=== PATIENT | female | born 1960 | race Hispanic/Latino ===

== ENCOUNTER 2019-11-09 22:33 | Emergency (ER) | payer OTHER, SELFPAY ==
--- NOTE | ~2019-11-09 | XR_ITS ---
EXAMINATION: XR chest 2V DATE: 11/10/2019 00:25 INDICATION: Shortness of breath. TECHNIQUE: Frontal and lateral views of the chest were obtained. COMPARISON: None. FINDINGS: The chest demonstrates clear lungs without pneumonia, pleural effusion, or pneumothorax. Th e heart size is normal. IMPRESSION: 1. No acute cardiopulmonary disease. Reviewed, dictated and finalized at location A. ORATE COUNSELOR
[2019-11-09 22:37] VITALS: BP 150/71; PULSE 62; RESP 31; TEMP 36.8; O2SAT 99
[2019-11-09 22:48] VITALS: PULSE 58
[2019-11-09 23:01] VITALS: BP 131/64; PULSE 56; RESP 25; O2SAT 97
--- NOTE | 2019-11-09 23:14 | ED.SOB ---
HPI - SOB/Dyspnea General Chief Complaint: Shortness of Breath/Dyspnea Stated Complaint: SOB Time Seen by Provider: 11/09/19 23:15 Source: patient and senior strategy manager (daughter translating from American to [place] Islander) Mode of arrival: ambulatory Limitations: no limitations History of Present Illness HPI Narrative: A 59 y/o female presents to the ED with c/o intermittent SOB for 2 days. Pt is not currently SOB in the ED bed. PAtient states for 2 days she has feeling of hard breathing. Whenever she has this sensations she states that she will also experience a warm sensation from my back to head. Pt had similar symptoms in the past when she had pneumonia. Pt has seen a building carpenter in the past but had not had a stress test done. She reports congestion, but denies heart palpitations, a cough, a fever, and smoking. Pt's daughter in the room translating from American to [place] Islander. Onset (ago): day(s) (2) Timing: intermittent Review of Systems Review of Systems: All systems reviewed & are unremarkable except as noted in HPI and below Constitutional: Constitutional: Denies fever(s) ENT: Denies dizziness Comments: Reports: congestion Cardiovascular: Cardiovascular: Denies chest pain and Denies rapid heart rate Comments: Denies: palpitations Respiratory: Respiratory: Denies cough and Reports dyspnea Gastrointestinal: Gastrointestinal: Denies diarrhea, Denies nausea and Denies vomiting PMFSH Past Medical History Medical History (Updated 11/10/19 @ 01:10 by Sonal Clayton MD) GERD (gastroesophageal reflux disease) HLD (hyperlipidemia) HTN (hypertension) Pneumonia Surgical History Surgical History (Updated 11/09/19 @ 23:24 by Tammei Savage) H/O hernia repair Social History Social History (Updated 11/09/19 @ 23:24 by Tammie Savage) Smoking status: Never smoker Gender identity (if verbalized by the patient): Female Comments No PCP on file. Exam Narrative: Exam Narrative: GENERAL: Well-appearing, well-nourished, and in no acute distress. HEAD: Normocephalic, atraumatic EYES: PERRLA and EOMI, conjunctiva clear without discharge THROAT:Mucous membranes moist, Oropharynx normal without erythema, exudate, peritonsillar swelling or fluctuance NECK: Supple, without lymphadenopathy or mass RESPIRATORY: No respiratory distress, Airway patent, Respirations non-labored, Clear to auscultation without rales, rhonchi or wheeze HEART: Regular rate and rhythm. No murmur heard. Normal peripheral pulses. ABDOMEN: Soft, nontender, nondistended, normal active bowel sounds. No masses. No rebound or guarding, No organomegaly. EXTREMITIES: No edema, normal strength with full range of motion. SKIN: Warm, dry, normal color without rash NEURO: Alert and oriented x3. CN 2-12 grossly intact. No focal deficits. PSYCH: Normal mood and affect. Course Vital Signs Vital signs: Vital Signs Temperature 98.2 F 11/09/19 22:37 Pulse Rate 62 11/09/19 22:37 Respiratory Rate 31 H 11/09/19 22:37 Blood Pressure 150/71 H 11/09/19 22:37 Pulse Oximetry 99 11/09/19 22:37 Temperature 98.1 F 11/10/19 01:37 Pulse Rate 57 L 11/10/19 01:30 Respiratory Rate 26 H 11/10/19 01:30 Blood Pressure 139/60 11/10/19 01:30 Pulse Oximetry 97 11/10/19 01:30 MDM - SOB/Dyspnea Lab Data Attestation: I reviewed the patient's lab results. Result diagrams: 11/09/19 23:27 11/09/19 23:27 Labs: Lab Results 11/09/19 11/09/19 11/09/19 Range/Units 23:27 23:27 23:27 WBC 4.1 L (4.5-10.0) K/mm3 RBC 3.95 L (4.2-5.4) M/mm3 Hgb 12.3 (12.0-15.0) g/dL Hct 35.4 L (37.0-47.0) % MCV 89.6 (80-100) fl MCH 31.1 (26-34) pg MCHC 34.7 (32-36) g/dl RDW 13.2 (11.5-14.5) % Plt Count 177 (150-375) k/mm3 MPV 11.4 H (7.4-10.4) fl Immature Gran % (Auto) 0.2 (0-0.5) % Neut % (Auto) 55.9 (45.5-73.1) % Lymph % (Auto) 29.2 (18.3-44.2) % [place] % (Auto) 11.8 H
--- NOTE | 2019-11-09 23:20 | ECG_ITS ---
Measurements Intervals [place] Rate: 58 P: 28 [place]: 164 QRS: 27 QRSD: 88 T: 11 QT: 430 QTc: 426 Interpretive Statements SINUS BRADYCARDIA EARLY PRECORDIAL R/S TRANSITION BORDERLINE ST-T WAVE ABNORMALITY- INFERIOR LEADS BORDERLINE ECG Electronically Signed On 11-10-2019 7:03:10 BIOINFORMATICS SOFTWARE ENGINEER by Joey Potts D.O.
[2019-11-09 23:47] LABS: Basophils Percent Auto 0.7 % (0.2-1.2); Eosinophils Absolute Auto 0.1 K/mm3 (0-0.3); Eosinophils Percent Auto 2.2 % (0-4.4); Hematocrit 35.4 % (37.0-47.0); Hemoglobin 12.3 g/dL (12.0-15.0); Immature Granulocyte Absolute 0.01 K/mm3 (0.00-0.031); Immature Granulocyte Percent A 0.2 % (0-0.5); Lymphocytes Absolute Auto 1.19 K/mm3 (0.9-3.2); Lymphocytes Percent Auto 29.2 % (18.3-44.2); Mean Corpuscular HGB Conc 34.7 g/dl (32-36); Mean Corpuscular Hemoglobin 31.1 pg (26-34); Mean Corpuscular Volume 89.6 fl (80-100); Mean Platelet Volume 11.4 fl (7.4-10.4); Monocytes Absolute Auto 0.5 K/mm3 (0.1-0.6); Monocytes Percent Auto 11.8 % (2.6-8.5); Neutrophils Absolute Auto 2.3 K/mm3 (1.3-6.7); Neutrophils Percent Auto 55.9 % (45.5-73.1); Platelet Count Result 177 k/mm3 (150-375); Red Blood Count 3.95 M/mm3 (4.2-5.4); Red Cell Distribution Width 13.2 % (11.5-14.5); White Blood Count 4.1 K/mm3 (4.5-10.0)
[2019-11-09 23:51] LABS: INR 0.9; Partial Thromboplastin Time 29.8 SECONDS (22.3-36.8); Prothrombin Time 12.2 Seconds (11.1-14.7)
[2019-11-09 23:54] LABS: D Dimer 0.39 ug/mL (<0.48)
[2019-11-10] VITALS: BP 147/78; PULSE 56; RESP 20; O2SAT 97
[2019-11-10 00:19] LABS: Troponin I < 0.012 ng/mL (0.000-0.034)
[2019-11-10 00:20] LABS: Alanine Aminotransferase 36 U/L (4-35); Albumin Level 3.9 g/dL (3.5-5.1); Alkaline Phosphatase 84 U/L (38-126); Aspartate Amino Transferase 53 U/L (14-36); Bilirubin,Total 0.3 mg/dL (0.2-1.3); Blood Urea Nitrogen 17 mg/dL (7-17); Calcium 8.9 mg/dL (8.4-10.2); Carbon Dioxide 22 mmol/L (22-30); Chloride 105 mmol/L (98-107); Estimated CRCL calculation 70 ml/min; Estimated Glomerular Filt Rate > 60; Glucose 96 mg/dL (65-105); Potassium 3.8 mmol/L (3.4-5.0); Sodium 138 mmol/L (137-145)
[2019-11-10 00:24] VITALS: BP 135/69; PULSE 56; RESP 25; O2SAT 96
[2019-11-10 01:01] VITALS: BP 134/70; PULSE 60; RESP 22; O2SAT 98
[2019-11-10 01:30] VITALS: BP 139/60; PULSE 57; RESP 26; O2SAT 97
[2019-11-10 01:37] VITALS: TEMP 36.7
== END 2019-11-10 01:55 | disposition home or self-care (01) ==
PROVIDERS: Emergency Provider General Practice
DX: R06.00 Dyspnea, unspecified (principal); K21.9 Gastro-esophageal reflux disease without esophagitis; E78.5 Hyperlipidemia, unspecified; I10 Essential (primary) hypertension
CPT/HCPCS: 36415; 71046; 80053; 84484; 85025; 85380; 85610; 85730; 93005; 99284

== ENCOUNTER 2021-04-14 17:39 | Emergency (ER) | payer OTHER, SELFPAY ==
[2021-04-14 18:07] VITALS: BP 154/66; PULSE 59; RESP 18; TEMP 36.5; O2SAT 100
--- NOTE | 2021-04-14 20:16 | ED.DENTAL ---
HPI - Dental/Oral General Chief complaint: Dental/Oral Stated complaint: Tooth Ache Time Seen by Provider: 04/14/21 19:30 Source: patient and RN notes reviewed Mode of arrival: ambulatory Limitations: no limitations History of Present Illness HPI Narrative: Patient is a 61-year-old female who presents to emergency department for evaluation of dental pain to the right upper lower teeth where she has history of gross dental decay this is been going on for 2 to 3 days she notes moderate aching pain she denies any fever chills nausea vomiting or other complaints and otherwise presents in no distress resting comfortably has not taken anything for symptoms at this time has had similar occurrence in the past does not have a dentist Review of Systems Review of Systems: All systems reviewed & are unremarkable except as noted in HPI and below PMFSH Past Medical History Medical History GERD (gastroesophageal reflux disease) HLD (hyperlipidemia) HTN (hypertension) Pneumonia Surgical History Surgical History H/O hernia repair Social History Social History Smoking status: Never smoker Gender identity (if verbalized by the patient): Female Exam Narrative: GENERAL: Well-appearing, well-nourished, and in no acute distress. HEAD: Normocephalic, atraumatic. EYES: PERRLA and EOMI. ENT: Nares clear, no rhinorrhea or epistaxis. Mucous membranes moist. Patient with dental decay and tenderness of the right upper posterior teeth no space-occupying lesions floor the mouth is soft no trismus or drooling NECK: Supple. No adenopathy or masses. CHEST: Clear to auscultation. No respiratory distress. No wheezes rales or rhonchi HEART: Regular rate and rhythm. No murmur heard. EXTREMITIES: Normal range of motion. No edema. SKIN: Warm, dry, no rash. NEURO: No focal deficits. Alert and oriented x3. Cranial nerves II through XII grossly intact PSYCH: Normal mood and affect. Course Course Emergency Course: Patient in the room no distress aware of case findings treatment plan and diagnosis agreeing to follow-up as instructed or to return if symptoms worsen or concerns Vital Signs Vital signs: Vital Signs Temperature 97.7 F 04/14/21 18:07 Pulse Rate 59 L 04/14/21 18:07 Respiratory Rate 18 04/14/21 18:07 Blood Pressure 154/66 H 04/14/21 18:07 Pulse Oximetry 100 04/14/21 18:07 Temperature 97.7 F 04/14/21 18:07 Pulse Rate 59 L 04/14/21 18:07 Respiratory Rate 18 04/14/21 18:07 Blood Pressure 154/66 H 04/14/21 18:07 Pulse Oximetry 100 04/14/21 18:07 MDM - Dental/Oral MDM Narrative Medical decision making narrative: Paitents pain and complaint coupled with physical findings are consistant with dentalgia. There are no focal signs of space occupying lesions that are compromising to the ariway. The floor of the mouth is soft with no signs of Ludwigs Angina. Patient is without trismus or drooling and able to swallow secreations. Patient is felt appropriate for discharge home with dental follow up. Discharge Plan Discharge Clinical Impression: Dental abscess Patient Disposition: Home, Self-Care Condition: Stable Instructions: Antibiotic Form, Dental Abscess (ED) Additional Instructions: Follow up with your primary care provider and dentistry within 1-2 days to set up for reevaluation. Go to ER for shortness of breath, difficulty breathing, chest pain, fever/chills, weakness, nauseau/vomitting, etc. or any other concerns. Stay well-hydrated Take any prescribed medications as directed. Follow patient education sheets If you do not have a drug allergy to tylenol or motrin and can tolerate it then take tylenol or motrin as needed for discomfort/pain. Prescriptions: New amoxicillin 500 mg capsule 500 mg PO Q8H 10 Days Qty: 30 RF: 0
== END 2021-04-14 20:31 | disposition home or self-care (01) ==
PROVIDERS: Emergency Provider Emergency Medicine
DX: K04.7 Periapical abscess without sinus (principal); K21.9 Gastro-esophageal reflux disease without esophagitis; I10 Essential (primary) hypertension; E78.5 Hyperlipidemia, unspecified; Z87.01 Personal history of pneumonia (recurrent)
CPT/HCPCS: 99283

== ENCOUNTER 2022-01-20 10:39 | Inpatient (IN) | payer OTHER, SELFPAY ==
--- NOTE | ~2022-01-20 | XR_ITS ---
EXAMINATION: XR tibia fibula LT 2V DATE: 01/20/2022 11:02 INDICATION: Laceration to the posterior distal left lower leg post trauma TECHNIQUE: Anteroposterior and lateral views of the left tibia and fibula were obtained. COMPARISON: None. FINDINGS: Soft tissue swelling with small lucencies in the subcutaneous tissues at the posterior aspect of the distal calf consistent with provided history of trauma with lacerations. No radiopaque foreign bodies identified. Bone alignment is normal. No fracture. Profiled joint spaces are normal. Moderate-sized plantar calcaneal spur. IMPRESSION: 1. No acute osseous abnormality or radiopaque foreign bodies. Reviewed, dictated and finalized at location A.
--- NOTE | ~2022-01-20 | XR_ITS ---
EXAMINATION: XR chest 1V portable DATE: 01/21/2022 14:07 INDICATION: Cough. TECHNIQUE: A single frontal view of the chest was obtained. COMPARISON: Chest 2 views 11/10/2019 FINDINGS: There is no pneumonia, pleural effusion, or pneumothorax. Cardiomegaly is noted. IMPRESSION: 1. Cardiomegaly. Reviewed, dictated and finalized at location B. IMPRESSION: 1. Cardiomegaly.
[2022-01-20 10:48] VITALS: BP 131/66; PULSE 71; RESP 18; TEMP 36.1; O2SAT 97
--- NOTE | 2022-01-20 12:24 | ED.WOUNDLAC ---
HPI - Wound/Laceration General Chief Complaint: Wound/Laceration Stated Complaint: fall/leg laceration Time Seen by Provider: 01/20/22 12:15 Source: patient Limitations: no limitations History of Present Illness HPI narrative: Patient is 62 years old female who does not speak Libyan came to the emergency room with her daughter who speaks Libyan complaining of laceration left ankle medially, hit a piece of metal in the ground while trying to mowing the grass.. No other injuries. Unknown tetanus. Related Data Allergies Allergy/AdvReac Type Severity Reaction Status Date / Time No Known Allergies Allergy Verified 01/20/22 11:22 Review of Systems Review of Systems: All systems reviewed & are unremarkable except as noted in HPI and below PMFSH Past Medical History Medical History GERD (gastroesophageal reflux disease) HLD (hyperlipidemia) HTN (hypertension) Pneumonia Surgical History Surgical History H/O hernia repair Social History Social History Smoking status: Never smoker Gender identity (if verbalized by the patient): Female Exam Narrative: General appearance: Well-developed, well-nourished. The daughter at the bedside Skin: Normal color, 5 cm subcutaneous laceration at medial side of left ankle, Head: Normocephalic, nontraumatic Chest and respiratory: Airway patent, no respiratory distress, no accessory muscle use Heart: Regular rate/rhythm Vascular: Normal peripheral pulses, normal capillary refill. Musculoskeletal: Normal range of motion, nontender back Neurologic: Alert and oriented ?3, Course Vital Signs Vital signs: Vital Signs Temperature 36.1 C L 01/20/22 10:48 Pulse Rate 71 01/20/22 10:48 Respiratory Rate 18 01/20/22 10:48 Blood Pressure 131/66 01/20/22 10:48 Pulse Oximetry 97 01/20/22 10:48 Temperature 36.1 C L 01/20/22 10:48 Pulse Rate 71 01/20/22 10:48 Respiratory Rate 18 01/20/22 10:48 Blood Pressure 131/66 01/20/22 10:48 Pulse Oximetry 97 01/20/22 10:48 MDM - Wound/Laceration Imaging Data Radiologist's impression: Impressions Tibia/Fibula X-Ray 01/20/22 11:03 IMPRESSION: 1. No acute osseous abnormality or radiopaque foreign bodies. Discharge Plan Discharge Clinical Impression: Laceration Patient Disposition: Still a Patient Condition: Stable Additional Instructions: Admit to hospitalist, consult Dr. Del Rosario Prescriptions: No Action amoxicillin 500 mg capsule 500 mg PO Q8H 10 Days Qty: 30 RF: 0 ibuprofen [IBU] 600 mg tablet 600 mg PO QID PRN (Reason: fever or pain) Qty: 7 RF: 0 hydrocodone-acetaminophen 5-325 mg tablet 1 tablet PO Q6H PRN (Reason: pain) Qty: 7 RF: 0 Follow-up/Referrals: Kelly,MARI Munson [Primary Care Provider] -
[2022-01-20] MEDS: TETANUS,DIPHTHERIA,AC PERTUSSIS ADULT (0.5 ML) BOOSTRIX IM (13:00)
[2022-01-20] MEDS: LIDO 1%/EPINEPHRINE 1:100,000 10 ML VIAL ×2 (14:08→14:43)
[2022-01-20] MEDS: MORPHINE SULFATE (*CRX) 4 MG/ML INJ IV PUSH ×2 (15:08→19:57)
[2022-01-20] MEDS: ONDANSETRON INJ 4 MG/2 ML VIAL IV PUSH (15:08)
[2022-01-20] MEDS: ceFAZolin 2 GM/D5W 50 ML 2 GM/50 ML BAG IVPB (16:09)
[2022-01-20 17:03] VITALS: O2SAT 98
[2022-01-20 17:05] VITALS: BP 95/62; O2SAT 98
--- NOTE | 2022-01-20 17:44 | ADMGEN ---
This patient, Lorrie Angulo, was admitted to 2 Medical Room 241-01. Patient/family oriented to hospital policies and general routines including ID bracelet, bed and alarms, visiting hours, pain management, procedures, bathroom and other care routines, personal items, smoking policy, room service/diet, and visiting hours. Information on how to activate the Rapid Response Team has been discussed. Patient/Family are encouraged to report perceived risks to care and to ask questions if they do not understand what they are told or what they should do.
[2022-01-20 20:00] VITALS: PULSE 71; RESP 18; O2SAT 98
--- NOTE | 2022-01-20 21:10 | PM.IMHP ---
H&P: HPI History of Present Illness Date/Time: Patient was placed observation status for expected length of stay less than 23 hours for management, will plan to re-evaluate tomorrow for improvement. 01/20/22 21:10 Chief Complaint: Left ankle laceration Narrative: Ms. Andrew is a 62-year-old female who presented emergency room after lacerating her left medial ankle. Patient does not speak Lithuanian very well but her daughter is at bedside to help with some translation. Per patient she was mowing the lawn and a piece of metal flew up and hit the medial side of her left ankle. Patient started walking towards her house and her daughter noticed that there was quite a bit of blood from this area and patient's daughter thought patient should come emergency room. Patient states that it did her toe walk but she was able to walk. Upon evaluation emergency room the emergency room physician noted that patient had a laceration to the left medial ankle and it appeared that her tendon had been cut. Patient denies any lightheadedness, dizziness, syncopal, or near syncopal episodes. Orthopedic surgery was consulted. Patient denies any past medical history and states she takes no medication at home. Review of Systems Review of Systems: It is difficult to obtain a full review of systems but a 12 point review of systems was completed patient all pertinent positive and negative per HPI the remainder are unremarkable. [facility] Past Medical History Medical History GERD (gastroesophageal reflux disease) HLD (hyperlipidemia) HTN (hypertension) Pneumonia Surgical History Surgical History H/O hernia repair Social History Social History Smoking status: Never smoker Alcohol intake: never Substance use: never Substance use type: does not use Gender identity (if verbalized by the patient): Female Spiritual care concerns: No Meds Home Medications and Allergies Home Medications Medication Instructions Recorded Confirmed Type atorvastatin [Lipitor] 80 mg PO DAILY 01/20/22 01/20/22 History Allergies Allergy/AdvReac Type Severity Reaction Status Date / Time No Known Allergies Allergy Verified 01/20/22 11:22 Vital Signs Vital Signs - 24 hr 01/20/22 10:48 01/20/22 17:03 01/20/22 17:05 Temperature 36.1 C L Pulse Rate 71 Respiratory Rate 18 Blood Pressure 131/66 95/62 L Pulse Oximetry 97 98 98 Exam Narrative: Constitutional: Patient is well-nourished in no acute distress. Patient is alert and oriented x3 HEENT: Moist mucous membranes. No scleral icterus. No lymphadenopathy. Neck: No carotid bruits noted no JVD noted Lungs: Lung sounds are clear to auscultation bilaterally. No accessory muscle use. No rhonchi, rales, or wheezes noted. Cardiovascular: Apical pulse is regular rate and rhythm. S1-S2 noted, no S3 or S4 noted. No gallops, murmurs, or rubs noted. Abdomen: Soft, round, and nontender. No palpable masses. Extremities: No edema. Nontender. Skin: dressing to left lower extremity is dry intact. Neurological: No focal neurological deficits. Cranial nerves II-XII grossly intact. Psychiatric: Cooperative, appropriate mood, and affect Assessment and Plan Assessment and plan (1) Open wound of left lower extremity with tendon involvement: Code(s): S81.802A - Unspecified open wound, left lower leg, initial encounter; S86.902A - Unspecified injury of unspecified muscle(s) and tendon(s) at lower leg level, left leg, initial encounter Status: Acute Assessment and Plan: at this point time orthopedic surgery has been consult and appreciate further recommendations. Patient will be kept NPO after midnight for possible surgery. Patient's RCRI score is 0 which puts her at a 3.9% 30 day risk of , mi, or cardiac arrest. Patient
[2022-01-20 22:00] VITALS: BP 101/49; PULSE 58; RESP 14; TEMP 36.7; O2SAT 93
[2022-01-21] VITALS (14 sets, daily range): BP systolic 97–125; BP diastolic 46–68; PULSE 54–63; RESP 11–18; TEMP 36.4–37.7; O2SAT 93–100; BMI 33.9
[2022-01-21] MEDS: ACETAMINOPHEN 325 MG TABLET 650 MG PO ×2 (00:34→06:02)
[2022-01-21 05:50] LABS: Basophils Percent Auto 0.6 % (0.2-1.2); Eosinophils Absolute Auto 0.3 K/mm3 (0-0.3); Eosinophils Percent Auto 5.7 % (0-4.4); Hematocrit 34.3 % (37.0-47.0); Hemoglobin 11.1 g/dL (12.0-15.0); Immature Granulocyte Absolute 0.01 K/mm3 (0.00-0.031); Immature Granulocyte Percent A 0.2 % (0-0.5); Lymphocytes Absolute Auto 0.95 K/mm3 (0.9-3.2); Lymphocytes Percent Auto 18.1 % (18.3-44.2); Mean Corpuscular HGB Conc 32.4 g/dl (32-36); Mean Corpuscular Hemoglobin 29.6 pg (26-34); Mean Corpuscular Volume 91.5 fl (80-100); Mean Platelet Volume 11.4 fl (7.4-10.4); Monocytes Absolute Auto 0.5 K/mm3 (0.1-0.6); Monocytes Percent Auto 9.9 % (2.6-8.5); Neutrophils Absolute Auto 3.4 K/mm3 (1.3-6.7); Neutrophils Percent Auto 65.5 % (45.5-73.1); Platelet Count Result 166 k/mm3 (150-375); Red Blood Count 3.75 M/mm3 (4.2-5.4); Red Cell Distribution Width 13.5 % (11.5-14.5); White Blood Count 5.3 K/mm3 (4.5-10.0)
[2022-01-21 06:06] LABS: Alanine Aminotransferase 23 U/L (6-35); Albumin Level 3.6 g/dL (3.5-5.1); Alkaline Phosphatase 72 U/L (38-126); Anion Gap 9 mmol/L (8-16); Aspartate Amino Transferase 31 U/L (14-36); Bilirubin,Total 0.6 mg/dL (0.2-1.3); Blood Urea Nitrogen 16 mg/dL (7-17); Calcium 8.4 mg/dL (8.4-10.2); Carbon Dioxide 29 mmol/L (22-30); Chloride 106 mmol/L (98-107); Estimated CRCL calculation 59 ml/min; Estimated Glomerular Filt Rate > 60; Glucose 87 mg/dL (65-110); Magnesium 2.1 mg/dL (1.6-2.3); Potassium 3.8 mmol/L (3.4-5.0); Sodium 144 mmol/L (137-145)
--- NOTE | 2022-01-21 07:40 | PM.CNOR ---
Assessment and Plan Assessment and plan (1) Open wound of left lower extremity with tendon involvement: Code(s): S81.802A - Unspecified open wound, left lower leg, initial encounter; S86.902A - Unspecified injury of unspecified muscle(s) and tendon(s) at lower leg level, left leg, initial encounter Status: Acute Assessment and Plan: Discussed nonoperative and operative treatment options with the patient And family. Risks and benefits of each as well as alternatives were reviewed. All of the patient's questions were answered. The risks of surgery reviewed including but not limited to: Neurovascular damage, wound complication, infection, blood clot, pulmonary embolus, stroke, myocardial infarction, and anesthetic risks up to and including . Continued pain and possible dysfunction were explained. Specific risks of the procedure including later recurrence of deformity. No guarantees were offered. If hardware used, discussed risk of failure/ breakage and possible need for removal. If complications occur, the patient understands the need for further treatment, possible further surgery. Patient verbalizes understanding and wishes to proceed. PLAN: debridement left lower leg wound with possible repair. (2) Laceration: Status: Acute History of Present Illness HPI Consult date: 01/21/22 Requesting physician: Awa Sweet MD Chief complaint: Left leg laceration w lacerated ligament/muscle Narrative: 62-year-old woman with left lower leg laceration from a piece of metal while mowing the lawn. irrigated and dressing placed by emergency room. Admitted for IV antibiotics and further evaluation and treatment. Patient seen and examined with the assistance of daughter who acted as pillowcase sewer. Complains of pain posterior left lower leg. Denies numbness or tingling. Denies any prior problems with the leg. Unable to comfortably bear weight after injury. Review of Systems Constitutional: Constitutional: Denies fever(s) Eyes: Eyes: Denies blurry vision ENT: Reports Normal hearing present Cardiovascular: Cardiovascular: Denies chest pain and Denies dyspnea Respiratory: Respiratory: Denies dyspnea and Denies wheezing Gastrointestinal: Gastrointestinal: Denies abdominal pain Genitourinary: Genitourinary: Denies urinary urgency Musculoskeletal: Musculoskeletal: Reports as per HPI and Denies numbness Integumentary/Breasts: Skin/Breast: Denies changing lesions and Denies sores Neurologic: Reports Normal hearing present, Denies behavioral changes, Denies confusion, Denies numbness and Denies convulsions Psychiatric: Psychiatric: Denies behavioral changes, Denies confusion and Denies hallucinations Endocrine: Endocrine: Denies heat intolerance Hematologic/Lymphatic: Hematologic/Lymphatic: Denies easy bleeding Allergic/Immunologic: Allergic/Immunologic: Denies wheezing PMFSH Past Medical History Medical History GERD (gastroesophageal reflux disease) HLD (hyperlipidemia) HTN (hypertension) Pneumonia Surgical History Surgical History H/O hernia repair Social History Social History Smoking status: Never smoker Alcohol intake: never Substance use: never Substance use type: does not use Gender identity (if verbalized by the patient): Female Spiritual care concerns: No Meds Home Medications and Allergies Home Medications Medication Instructions Recorded Confirmed Type atorvastatin [Lipitor] 80 mg PO DAILY 01/20/22 01/20/22 History Allergies Allergy/AdvReac Type Severity Reaction Status Date / Time No Known Allergies Allergy Verified 01/20/22 11:22 Vital Signs Vital Signs - 24 hr 01/20/22 10:48 01/20/22 17:03 01/20/22 17:05 Temperature 97.0 F L Pulse Rate 71 Respiratory Rate 18 Blood Pressure 131
[2022-01-21] MEDS: HYDROcodone/acetaminophen (*CRX) 5-325 MG TABLET 1 TAB PO (08:18)
[2022-01-21] MEDS: GENTAMICIN SULFATE INJ 320 MG in DEXTROSE 5% 100 ML 100 MG IVPB (09:38)
--- NOTE | 2022-01-21 13:51 | PM.IMPN ---
Progress Note: A&P Assessment and Plan (1) Open wound of left lower extremity with tendon involvement: Code(s): S81.802A - Unspecified open wound, left lower leg, initial encounter; S86.902A - Unspecified injury of unspecified muscle(s) and tendon(s) at lower leg level, left leg, initial encounter Status: Acute Assessment and Plan: -ortho consulted -plan for debridement of left lower leg wound with possible repair in OR today -continue IV abx -further management per ortho (2) Cough: Code(s): R05.9 - Cough, unspecified Status: Acute Assessment and Plan: -cough/congestion x 3 days -covid negative -CXR w/ cardiomegaly, no infiltrates -consider claritin/flonase for allergic rhinitis Subjective Date/time seen: 01/21/22 13:52 Interval history: 62 yo botswanan speaking female w/ hx of HTN, HLD, GERD, admitted for ankle laceration. Pt c/o 4-5 pain currently. No numbness or tingling. Also reports nasal congestion, rhinorrhea, cough x 3 days. She is not vaccinated for covid and has never been diagnosed with covid. Daughter at bedside acting as a manager entry. Review of Systems Review of Systems: All systems reviewed & are unremarkable except as noted in HPI and below Exam Narrative: General: No acute distress, non toxic appearing Eyes: PERRL, no scleral icterus HEENT: NCAT, external ears normal, MMM Respiratory: No respiratory distress, Lungs CTA bilaterally, no wheezing Cardiovascular: RRR, no murmur Abdominal: Soft, nontender, non distended, no rebound or guarding Musculoskeletal: Moves all 4 extremities, no edema Neurological: A/Ox3, speech clear, no facial asymmetry Skin: Warm, dry. Dressing to LLE c/d/i. Psychiatric: Normal affect, normal mood Objective Data Vital Signs Vital Signs: Vital Signs - 24 hr 01/20/22 17:03 01/20/22 17:05 01/20/22 20:00 Temperature Pulse Rate 71 Respiratory Rate 18 Blood Pressure 95/62 L Pulse Oximetry 98 98 98 01/20/22 22:00 01/21/22 06:53 01/21/22 08:53 Temperature 98.0 F 98.4 F Pulse Rate 58 L 55 L Respiratory Rate 14 16 Blood Pressure 101/49 L 97/46 L Pulse Oximetry 93 97 96 Intake/Output Intake/Output: Intake & Output 01/18/22 01/19/22 01/20/22 01/21/22 23:59 23:59 23:59 23:59 Intake Total 50 258 Output Total 500 Balance 50 -242 Meds/Results Medications: Active Medications Generic Name Dose Route Start Last Admin Trade Name Freq PRN Reason Stop Dose Admin Acetaminophen 650 mg 01/20/22 15:37 01/21/22 06:02 Acetaminophen 325 Mg Tablet PO 650 mg Q4H PRN Administration Mild Pain (1-3) or Fever Hydrocodone Bitart/Acetaminophen 1 tab 01/21/22 07:48 01/21/22 08:18 Hydrocodone/Acetaminophen (*Crx) 5-325 Mg Tablet PO 1 tab Q4H PRN Administration Pain Rated 4-6 Atorvastatin Calcium 80 mg 01/21/22 09:00 Atorvastatin 40 Mg Tablet PO DAILY FOREST Gentamicin Sulfate 320 mg/ 108 mls @ 99.31 mls/hr 01/22/22 09:00 Dextrose IVPB PRN PRN PHARMACY DOSING Morphine Sulfate 4 mg 01/20/22 15:37 01/20/22 19:57 Morphine Sulfate (*Crx) 4 Mg/Ml Inj IV PUSH 4 mg Q2H PRN Administration Pain Rated 7-10 Ondansetron HCl 4 mg 01/20/22 15:37 Ondansetron Inj 4 Mg/2 Ml Vial IV PUSH Q4H PRN Nausea Radiology Results: ITS Impressions Tibia/Fibula X-Ray 01/20/22 11:03 IMPRESSION: 1. No acute osseous abnormality or radiopaque foreign bodies. Labs Labs: Laboratory Results - last 24 hr 01/21/22 01/21/22 04:51 04:51 WBC 5.3 RBC 3.75 L Hgb 11.1 L Hct 34.3 L MCV 91.5 MCH 29.6 MCHC 32.4 RDW 13.5 Plt Count 166 MPV 11.4 H Immature Gran % (Auto) 0.2 Neut % (Auto) 65.5 Lymph % (Auto) 18.1 L [place] % (Auto) 9.9 H Eos % (Auto) 5.7 H Baso % (Auto) 0.6 Lymph # (Auto) 0.95 [place] # (Auto) 0.5 Eos # (Auto) 0.3 Baso # (Auto) 0.0 Abs Immat Gran (auto) 0.01 Absolute
[2022-01-21 14:54] LABS: EDCOVIDSCREEN Negative (Negative)
[2022-01-21] MEDS: LACTATED RINGERS 1,000 ML 30 ML IV CONT (15:28)
--- NOTE | 2022-01-21 15:33 | WPDANESEPPF ---
Anes - Initial Pre Proc Eval Procedure: Operation Date: 01/21/22 15:30 Proposed Procedures p Wash out and Repair Ankle Ligaments(Left) - Gallo Del Rosario MD Date/Time: 01/21/22 15:33 Surgeon: Dolores Voss PA-C Pre Op Diagnosis: Left leg laceration w lacerated ligament/muscle Patient Data Age: 62 Gender: F Height: 1.57 m Weight: 84.2 kg Last Vital Signs Temp 37.7 C H 01/21/22 15:27 Pulse 62 01/21/22 15:27 Resp 18 01/21/22 15:27 BP 108/46 L 01/21/22 15:27 Pulse Ox 98 01/21/22 15:27 Allergies Allergy/AdvReac Type Severity Reaction Status Date / Time No Known Allergies Allergy Verified 01/20/22 11:22 Home Medications Medication Instructions Recorded Confirmed Type atorvastatin [Lipitor] 80 mg PO DAILY 01/20/22 01/20/22 History Laboratory Tests 01/21/22 01/21/22 01/21/22 04:51 04:51 14:21 WBC 5.3 K/mm3 K/mm3 (4.5-10.0) RBC 3.75 M/mm3 L M/mm3 (4.2-5.4) Hgb 11.1 g/dL L g/dL (12.0-15.0) Hct 34.3 % L % (37.0-47.0) MCV 91.5 fl fl (80-100) MCH 29.6 pg pg (26-34) MCHC 32.4 g/dl g/dl (32-36) RDW 13.5 % % (11.5-14.5) Plt Count 166 k/mm3 k/mm3 (150-375) MPV 11.4 fl H fl (7.4-10.4) Immature Gran % (Auto) 0.2 % % (0-0.5) Neut % (Auto) 65.5 % % (45.5-73.1) Lymph % (Auto) 18.1 % L % (18.3-44.2) [place] % (Auto) 9.9 % H % (2.6-8.5) Eos % (Auto) 5.7 % H % (0-4.4) Baso % (Auto) 0.6 % % (0.2-1.2) Lymph # (Auto) 0.95 K/mm3 K/mm3 (0.9-3.2) [place] # (Auto) 0.5 K/mm3 K/mm3 (0.1-0.6) Eos # (Auto) 0.3 K/mm3 K/mm3 (0-0.3) Baso # (Auto) 0.0 K/mm3 K/mm3 (0.0-0.1) Abs Immat Gran (auto) 0.01 K/mm3 K/mm3 (0.00-0.031) Absolute Neuts (auto) 3.4 K/mm3 K/mm3 (1.3-6.7) Absolute Nucleated RBC 0.0 K/mm3 K/mm3 (0.0-0.012) Nucleated RBC % 0.0 % % (0.0-0.2) Sodium 144 mmol/L mmol/L (137-145) Potassium 3.8 mmol/L mmol/L (3.4-5.0) Chloride 106 mmol/L mmol/L (98-107) Carbon Dioxide 29 mmol/L mmol/L (22-30) Anion Gap 9 mmol/L mmol/L (8-16) BUN 16 mg/dL mg/dL (7-17) Creatinine 0.80 mg/dL mg/dL (0.7-1.0) Estim Creat Clear Calc 59 ml/min ml/min Estimated GFR > 60 (59 - ) Glucose 87 mg/dL mg/dL (65-110) Calcium 8.4 mg/dL mg/dL (8.4-10.2) Magnesium 2.1 mg/dL mg/dL (1.6-2.3) Total Bilirubin 0.6 mg/dL mg/dL (0.2-1.3) AST 31 U/L U/L (14-36) ALT 23 U/L U/L (6-35) Alkaline Phosphatase 72 U/L U/L (38-126) Total Protein 6.0 g/dL L g/dL (6.3-8.2) Albumin 3.6 g/dL g/dL (3.5-5.1) SARS-CoV-2 IgG/IgM Ag?Rapid Negative (Negative) Patient hx anesthesia problems: none Family hx anesthesia problems: none Results Review: All pre-operative results and documents have been reviewed as part of the pre-operative evaluation. [facility] Past Medical History Medical History GERD (gastroesophageal reflux disease) HLD (hyperlipidemia) HTN (hypertension) Pneumonia Surgical History Surgical History H/O hernia repair Social History Social History Smoking status: Never smoker Alcohol intake: never Substance use: never Substance use type: does not use Gender identity (if verbalized by the patient): Female Spiritual care concerns: No Anes - Eval Final PreProcedure Day of Procedure 01/21/22 15:33 Patient weight: obese Heart: regular rate and rhythm Lungs: clear to auscultation Airway: Mallampati scale class II Neurological: alert and oriented Last oral intake: >/=
[2022-01-21] MEDS: ACETAMINOPHEN 500 MG TABLET 1000 MG PO (15:34)
[2022-01-21] MEDS: KETOROLAC 15 MG/ML VIAL (*BKC) IV PUSH (15:34)
--- NOTE | 2022-01-21 15:36 | WPDHPUPDATE1 ---
History and Physical Update Update Date/Time: 01/21/22 15:36 History and Physical has been reviewed, including an updated exam of the patient. There are NO changes in the patient's condition. Risks, benefits, and alternatives have been discussed and questions answered. Patient agrees to proceed with procedure.
--- NOTE | 2022-01-21 15:43 | SUR.PREOP ---
DR CRESPO NOTIFIED OF TEMP 100.
[2022-01-21] MEDS: ceFAZolin 2 GM/D5W 50 ML 2 GM/50 ML BAG IVPB (15:53)
--- NOTE | 2022-01-21 17:26 | P.OP_ITS ---
Procedure Note - Detailed Date of Procedure 01/21/22 Pre-op Diagnosis Left leg laceration w lacerated ligament/muscle Post-op Diagnosis Same Procedure Performed Debridement left leg wound 12 cm, repair Achilles tendon, intermediate repair laceration. Surgeon Gallo Del Rosario MD Vessel Traffic Officer surgical supply assistant Anesthesia General Indications 62-year-old woman who fell and sustained a laceration to the posterior medial low left lower leg. Tendon visible. Presents for debridement and repair, closure. Findings 12 cm length laceration obliquely posteromedial left lower leg. Complete transection of the Achilles tendon. Soleus intact. No active bleeding. Moderate contamination. Description of Procedure Patient identified in the preoperative holding. Informed consent given. Operative extremity marked. Patient received intravenous antibiotics. Patient brought to the operating room where underwent general anesthetic by anesthesia team. Positioned supine on operating room table. Time-out performed confirming the patient, site of the surgery and the plan. Left leg prepped draped usual sterile surgical fashion using a Betadine prep solution. A bump was placed under the contralateral hip to externally rotate the left leg which allowed visualization of the laceration. Foot ankle exsanguinated and thigh tourniquet inflated to 250 mmHg. Approximately 12 cm long with full transection of the Achilles tendon. Soleus tendon noted to be intact. Moderate contamination with grass particles and dirt in the wound. These were removed. [place] used to remove loose and large pieces of debris. Wound thoroughly irrigated with solution. Clean transection of the Achilles tendon. Peer T non was elevated and the tendon itself was repaired with 2. Ethibond suture in a modified Krackow type repair. Six strands of suture proximally and distal were placed and tied at near anatomic length of the tendon. Muscle and fascial laceration repaired with 0 Vicryl interrupted suture. The pair a teen on repaired with 3-0 Monocryl interrupted suture. Wound thoroughly irrigated with solution once again. Intermediate repair of the laceration then performed with 2-0 Vicryl, 3-0 Monocryl, 3-0 nylon interrupted suture layers. Sterile dressing applied. Tourniquet released, good capillary refill in the toes noted. The patient was then woken from anesthesia, extubated and taken to the recovery room in stable condition. All sponge, needle, instrument counts were correct at the end of the case. Estimated Blood Loss 5 Tourniquet Time 53 Urine Output 500 Drains No Packing No Pathology None sent Complications None Condition Stable Disposition PACU
[2022-01-21] MEDS: fentaNYL CITRATE INJ (*CRX) 100 MCG/2 ML VIAL 25 MCG IV PUSH (17:55)
--- NOTE | 2022-01-21 18:00 | SUR.PHASEI ---
1745 use of spanish interpreter cynthia #[id number] pt speaks thai.
[2022-01-21 20:58] LABS: Gentamicin Random 2.8 ug/mL (5.0-12.0)
[2022-01-21] MEDS: FAMOTIDINE 20 MG TABLET PO (21:12)
[2022-01-21] MEDS: ATORVASTATIN 40 MG TABLET 80 MG PO (21:12)
[2022-01-21] MEDS: HEPARIN SODIUM 5,000 UNITS/ML VIAL 5000 UNITS SUB-Q (21:12)
[2022-01-21] MEDS: BENZOCAINE/MENTHOL (*BKC) 18 EA LOZENGE 1 LOZENGE PO (23:53)
[2022-01-22] VITALS (8 sets, daily range): BP systolic 96–125; BP diastolic 51–95; PULSE 62–72; RESP 12–18; TEMP 36.3–37.4; O2SAT 96–99
[2022-01-22 05:57] LABS: Basophils Percent Auto 0.2 % (0.2-1.2); Eosinophils Absolute Auto 0.2 K/mm3 (0-0.3); Eosinophils Percent Auto 2.6 % (0-4.4); Hematocrit 32.4 % (37.0-47.0); Hemoglobin 10.6 g/dL (12.0-15.0); Immature Granulocyte Absolute 0.02 K/mm3 (0.00-0.031); Immature Granulocyte Percent A 0.3 % (0-0.5); Lymphocytes Absolute Auto 0.82 K/mm3 (0.9-3.2); Lymphocytes Percent Auto 14.1 % (18.3-44.2); Mean Corpuscular HGB Conc 32.7 g/dl (32-36); Mean Corpuscular Hemoglobin 29.9 pg (26-34); Mean Corpuscular Volume 91.5 fl (80-100); Mean Platelet Volume 11.2 fl (7.4-10.4); Monocytes Absolute Auto 0.5 K/mm3 (0.1-0.6); Monocytes Percent Auto 8.1 % (2.6-8.5); Neutrophils Absolute Auto 4.3 K/mm3 (1.3-6.7); Neutrophils Percent Auto 74.7 % (45.5-73.1); Platelet Count Result 155 k/mm3 (150-375); Red Blood Count 3.54 M/mm3 (4.2-5.4); Red Cell Distribution Width 13.5 % (11.5-14.5); White Blood Count 5.8 K/mm3 (4.5-10.0)
[2022-01-22] MEDS: HYDROcodone/acetaminophen (*CRX) 5-325 MG TABLET 1 TAB PO ×3 (06:13→22:49)
[2022-01-22] MEDS: BENZOCAINE/MENTHOL (*BKC) 18 EA LOZENGE 1 LOZENGE PO ×2 (06:13→20:50)
[2022-01-22 06:22] LABS: Anion Gap 8 mmol/L (8-16); Blood Urea Nitrogen 19 mg/dL (7-17); Calcium 7.9 mg/dL (8.4-10.2); Carbon Dioxide 26 mmol/L (22-30); Chloride 106 mmol/L (98-107); Estimated CRCL calculation 63 ml/min; Estimated Glomerular Filt Rate > 60; Glucose 100 mg/dL (65-110); Potassium 3.7 mmol/L (3.4-5.0); Sodium 140 mmol/L (137-145)
[2022-01-22] MEDS: ACETAMINOPHEN 325 MG TABLET 650 MG PO (08:37)
[2022-01-22] MEDS: FAMOTIDINE 20 MG TABLET PO ×2 (08:38→20:50)
[2022-01-22] MEDS: SENNA/DOCUSATE SODIUM TABLET 2 TAB PO ×2 (08:38→16:44)
[2022-01-22] MEDS: polyethylene glycoL 3350 17 GM POWD.PACK PO (08:39)
[2022-01-22] MEDS: HEPARIN SODIUM 5,000 UNITS/ML VIAL 5000 UNITS SUB-Q ×2 (08:39→20:50)
[2022-01-22] MEDS: GENTAMICIN SULFATE INJ 320 MG in DEXTROSE 5% 100 ML 99.31 MG IVPB (08:39)
--- NOTE | 2022-01-22 09:09 | PM.PNORT ---
Progress Note: A&P Assessment and Plan (1) Open wound of left lower extremity with tendon involvement: Code(s): S81.802A - Unspecified open wound, left lower leg, initial encounter; S86.902A - Unspecified injury of unspecified muscle(s) and tendon(s) at lower leg level, left leg, initial encounter Status: Acute Assessment and Plan: POD #1: Debridement left leg wound 12 cm, repair Achilles tendon, intermediate repair laceration. Continue PT/OT. TTWB LLE. Continue fracture boot. Plan to change dressing tomorrow, will remove splint at that time. Improve pain control. Added Ketorolac. Ice. Elevate on pillows. Continue IV antibiotics. Plan to transition to oral antibiotics at discharge. Dispo: Home with home health (2) Laceration: Status: Acute Subjective Subjective Date/Time Seen: 01/22/22 09:09 Post Op day: 1 Interval history: POD # 1: Debridement left leg wound 12 cm, repair Achilles tendon, intermediate repair laceration. Patient sitting up in chair. Uncontrolled Pain. No other concerns. Working well with PT/OT. Maintaining WB status. Review of Systems Review of Systems: All systems reviewed & are unremarkable except as noted in HPI and below Exam Const: General: comfortable and no acute distress Resp: Effort & Inspection: normal respiratory effort Cardio: Rate: regular rate Rhythm: regular rhythm GI: Inspection: non-distended GI Palp: Yes Soft to palpation and No Tenderness to palpation present (GI) Neuro: Cognition (Neuro): normal cognition Extrem: Left lower extremity: lower leg (splint intact. Fracture boot. ), ankle (splint in place ) and foot (Splint in place/fracture boot in place. moves toes, sensation intact. ) Objective Data Vital Signs Vital Signs: Vital Signs - 24 hr 01/21/22 15:27 01/21/22 17:13 01/21/22 17:25 Temperature 37.7 C H 36.9 C Pulse Rate 62 56 L 59 L Respiratory Rate 18 12 14 Blood Pressure 108/46 L 106/53 L 123/68 Pulse Oximetry 98 100 100 01/21/22 17:40 01/21/22 17:55 01/21/22 18:10 Temperature Pulse Rate 58 L 59 L 57 L Respiratory Rate 13 13 11 L Blood Pressure 125/64 122/58 L 110/65 Pulse Oximetry 100 94 95 01/21/22 18:38 01/21/22 19:30 01/21/22 20:00 Temperature 36.4 C L 36.8 C Pulse Rate 56 L 54 L 62 Respiratory Rate 14 16 16 Blood Pressure 117/60 99/47 L Pulse Oximetry 97 100 97 01/21/22 21:00 01/21/22 22:50 01/21/22 23:59 Temperature 36.6 C 36.9 C 37.2 C Pulse Rate 62 63 63 Respiratory Rate 16 16 14 Blood Pressure 112/49 L 98/51 L 102/49 L Pulse Oximetry 97 93 95 01/22/22 06:10 01/22/22 08:30 Temperature 37.4 C Pulse Rate 72 Respiratory Rate 14 Blood Pressure 119/51 L Pulse Oximetry 99 96 Intake/Output Intake/Output: Intake & Output 01/19/22 01/20/22 01/21/22 01/22/22 23:59 23:59 23:59 23:59 Intake Total 50 608 640 Output Total 1000 700 Balance 50 -392 -60 Meds/Results Medications: Active Medications Generic Name Dose Route Start Last Admin Trade Name Freq PRN Reason Stop Dose Admin Acetaminophen 650 mg 01/20/22 15:37 01/22/22 08:37 Acetaminophen 325 Mg Tablet PO 650 mg Q4H PRN Administration Mild Pain (1-3) or Fever Hydrocodone Bitart/Acetaminophen 1 tab 01/21/22 07:48 01/22/22 06:13 Hydrocodone/Acetaminophen (*Crx) 5-325 Mg Tablet PO 1 tab Q4H PRN Administration Pain Rated 4-6 Atorvastatin Calcium 80 mg 01/21/22 21:00 01/21/22 21:12 Atorvastatin 40 Mg Tablet PO 80 mg HS FOREST Administration Benzocaine 1 lozenge 01/21/22 22:56 01/22/22 06:13 Benzocaine/Menthol (*Bkc) 18 Ea Lozenge PO 1 lozenge PRN PRN Administration Sore Throat Bisacodyl 10 mg 01/21/22 18:23 Bisacodyl 10 Mg Suppository RECTAL DAILY PRN Constipation Diazepam 5 mg 01/21/22 18:23 Diazepam (*Crx) 5 Mg Tablet PO Q8H PRN Muscle Spasm Famotidine 20 mg 01/21/22 21:00 01/22/22 08:38 Famotidine 20 Mg Tablet PO 20 mg
--- NOTE | 2022-01-22 10:27 | P.PNAN_ITS ---
Anes - Prog Note Post-Op Date/Time: 01/22/22 10:27 Cardiovascular status: normal Respiratory status: normal Airway patency: baseline Mental status: baseline Post-Op hydration status: normal Vital Signs: Last Vital Signs Temp 36.9 C 01/22/22 09:50 Pulse 65 01/22/22 09:50 Resp 12 01/22/22 09:50 BP 100/95 H 01/22/22 09:50 Pulse Ox 96 01/22/22 09:50 Pain Score (VAS): 2 I/O: Intake & Output 01/21/22 01/22/22 01/22/22 23:59 07:59 15:59 Intake Total 350 400 240 Output Total 500 700 Balance -150 -300 240 Laboratory Tests 01/22/22 05:08 01/22/22 05:08 01/21/22 01/21/22 01/22/22 14:21 19:57 05:08 WBC 5.8 RBC 3.54 L Hgb 10.6 L Hct 32.4 L MCV 91.5 MCH 29.9 MCHC 32.7 RDW 13.5 Plt Count 155 MPV 11.2 H Immature Gran % (Auto) 0.3 Neut % (Auto) 74.7 H Lymph % (Auto) 14.1 L [place] % (Auto) 8.1 Eos % (Auto) 2.6 Baso % (Auto) 0.2 Lymph # (Auto) 0.82 L [place] # (Auto) 0.5 Eos # (Auto) 0.2 Baso # (Auto) 0.0 Abs Immat Gran (auto) 0.02 Absolute Neuts (auto) 4.3 Absolute Nucleated RBC 0.0 Nucleated RBC % 0.0 Sodium Potassium Chloride Carbon Dioxide Anion Gap BUN Creatinine Estim Creat Clear Calc Estimated GFR Glucose Calcium Random Gentamicin 2.8 L SARS-CoV-2 IgG/IgM Ag?Rapid Negative 01/22/22 05:08 WBC RBC Hgb Hct MCV MCH MCHC RDW Plt Count MPV Immature Gran % (Auto) Neut % (Auto) Lymph % (Auto) [place] % (Auto) Eos % (Auto) Baso % (Auto) Lymph # (Auto) [place] # (Auto) Eos # (Auto) Baso # (Auto) Abs Immat Gran (auto) Absolute Neuts (auto) Absolute Nucleated RBC Nucleated RBC % Sodium 140 Potassium 3.7 Chloride 106 Carbon Dioxide 26 Anion Gap 8 BUN 19 H Creatinine 0.80 Estim Creat Clear Calc 63 Estimated GFR > 60 Glucose 100 Calcium 7.9 L Random Gentamicin SARS-CoV-2 IgG/IgM Ag?Rapid Post-procedural complaints: none Patient Feedback: Patient satisfied with anesthetic care.
[2022-01-22] MEDS: KETOROLAC 30 MG/ML VIAL (*BKC) IV PUSH (10:31)
--- NOTE | 2022-01-22 11:50 | PM.IMPN ---
Progress Note: A&P Assessment and Plan (1) Open wound of left lower extremity with tendon involvement: Code(s): S81.802A - Unspecified open wound, left lower leg, initial encounter; S86.902A - Unspecified injury of unspecified muscle(s) and tendon(s) at lower leg level, left leg, initial encounter Status: Acute Assessment and Plan: -ortho consulted -POD #1 s/p debridement left leg wound 12 cm, repair Achilles tendon, intermediate repair laceration. -continue IV abx -further management per ortho (2) Cough: Code(s): R05.9 - Cough, unspecified Status: Acute Assessment and Plan: -cough/congestion x 3 days -covid negative -CXR w/ cardiomegaly, no infiltrates -claritin/flonase for allergic rhinitis Subjective Date/time seen: 01/22/22 11:50 Interval history: 62 yo german speaking female w/ hx of HTN, HLD, GERD, admitted for ankle laceration. Pain controlled with meds. Still having runny nose and cough, requesting allergy medicine. No N/V/abd pain/cp/sob. No numbness or tingling. Review of Systems Review of Systems: All systems reviewed & are unremarkable except as noted in HPI and below Exam Narrative: General: No acute distress, non toxic appearing Eyes: PERRL, no scleral icterus HEENT: NCAT, external ears normal, MMM Respiratory: No respiratory distress, Lungs CTA bilaterally, no wheezing Cardiovascular: RRR, no murmur Abdominal: Soft, nontender, non distended, no rebound or guarding Musculoskeletal: Moves all 4 extremities, no edema Neurological: A/Ox3, speech clear, no facial asymmetry Skin: Warm, dry. Dressing and boot in place LLE. Psychiatric: Normal affect, normal mood Objective Data Vital Signs Vital Signs: Vital Signs - 24 hr 01/21/22 15:27 01/21/22 17:13 01/21/22 17:25 Temperature 100 F H 98.4 F Pulse Rate 62 56 L 59 L Respiratory Rate 18 12 14 Blood Pressure 108/46 L 106/53 L 123/68 Pulse Oximetry 98 100 100 01/21/22 17:40 01/21/22 17:55 01/21/22 18:10 Temperature Pulse Rate 58 L 59 L 57 L Respiratory Rate 13 13 11 L Blood Pressure 125/64 122/58 L 110/65 Pulse Oximetry 100 94 95 01/21/22 18:38 01/21/22 19:30 01/21/22 20:00 Temperature 97.5 F L 98.2 F Pulse Rate 56 L 54 L 62 Respiratory Rate 14 16 16 Blood Pressure 117/60 99/47 L Pulse Oximetry 97 100 97 01/21/22 21:00 01/21/22 22:50 01/21/22 23:59 Temperature 97.9 F 98.5 F 98.9 F Pulse Rate 62 63 63 Respiratory Rate 16 16 14 Blood Pressure 112/49 L 98/51 L 102/49 L Pulse Oximetry 97 93 95 01/22/22 06:10 01/22/22 08:30 01/22/22 09:50 Temperature 99.3 F 98.4 F Pulse Rate 72 65 Respiratory Rate 14 12 Blood Pressure 119/51 L 100/95 H Pulse Oximetry 99 96 96 Intake/Output Intake/Output: Intake & Output 01/19/22 01/20/22 01/21/22 01/22/22 23:59 23:59 23:59 23:59 Intake Total 50 608 640 Output Total 1000 700 Balance 50 -392 -60 Meds/Results Medications: Active Medications Generic Name Dose Route Start Last Admin Trade Name Freq PRN Reason Stop Dose Admin Acetaminophen 650 mg 01/20/22 15:37 01/22/22 08:37 Acetaminophen 325 Mg Tablet PO 650 mg Q4H PRN Administration Mild Pain (1-3) or Fever Hydrocodone Bitart/Acetaminophen 1 tab 01/21/22 07:48 01/22/22 06:13 Hydrocodone/Acetaminophen (*Crx) 5-325 Mg Tablet PO 1 tab Q4H PRN Administration Pain Rated 4-6 Atorvastatin Calcium 80 mg 01/21/22 21:00 01/21/22 21:12 Atorvastatin 40 Mg Tablet PO 80 mg HS FOREST Administration Benzocaine 1 lozenge 01/21/22 22:56 01/22/22 06:13 Benzocaine/Menthol (*Bkc) 18 Ea Lozenge PO 1 lozenge PRN PRN Administration Sore Throat Bisacodyl 10 mg 01/21/22 18:23 Bisacodyl 10 Mg Suppository RECTAL DAILY PRN Constipation Diazepam 5 mg 01/21/22 18:23 Diazepam (*Crx) 5 Mg Tablet PO Q8H PRN Muscle Spasm Famotidine 20 mg 01/21/22 21:00 01/22/22 08:38 Famotidine 20 Mg Tabl
[2022-01-22] MEDS: LORATADINE 10 MG TABLET PO (16:44)
[2022-01-22] MEDS: FLUTICASONE PROPIONATE 0.05% NA SPR 16 GM BTL (*BKC) 1 SPRAY NASAL (20:50)
[2022-01-22] MEDS: ATORVASTATIN 40 MG TABLET 80 MG PO (20:50)
[2022-01-23 00:23] VITALS: BP 114/50; PULSE 64; RESP 16; TEMP 36.6; O2SAT 92
[2022-01-23] MEDS: HYDROcodone/acetaminophen (*CRX) 5-325 MG TABLET 1 TAB PO (05:42)
[2022-01-23 05:53] VITALS: BP 115/55; PULSE 61; RESP 14; TEMP 36.4; O2SAT 94
[2022-01-23 06:36] LABS: Basophils Percent Auto 0.6 % (0.2-1.2); Eosinophils Absolute Auto 0.2 K/mm3 (0-0.3); Eosinophils Percent Auto 4.6 % (0-4.4); Hematocrit 31.4 % (37.0-47.0); Hemoglobin 10.3 g/dL (12.0-15.0); Immature Granulocyte Absolute 0.01 K/mm3 (0.00-0.031); Immature Granulocyte Percent A 0.2 % (0-0.5); Lymphocytes Absolute Auto 1.04 K/mm3 (0.9-3.2); Lymphocytes Percent Auto 21.9 % (18.3-44.2); Mean Corpuscular HGB Conc 32.8 g/dl (32-36); Mean Corpuscular Hemoglobin 29.7 pg (26-34); Mean Corpuscular Volume 90.5 fl (80-100); Mean Platelet Volume 11.3 fl (7.4-10.4); Monocytes Absolute Auto 0.5 K/mm3 (0.1-0.6); Monocytes Percent Auto 10.5 % (2.6-8.5); Neutrophils Absolute Auto 2.9 K/mm3 (1.3-6.7); Neutrophils Percent Auto 62.2 % (45.5-73.1); Platelet Count Result 151 k/mm3 (150-375); Red Blood Count 3.47 M/mm3 (4.2-5.4); Red Cell Distribution Width 13.4 % (11.5-14.5); White Blood Count 4.7 K/mm3 (4.5-10.0)
[2022-01-23 07:00] LABS: Anion Gap 7 mmol/L (8-16); Blood Urea Nitrogen 16 mg/dL (7-17); Carbon Dioxide 24 mmol/L (22-30); Chloride 105 mmol/L (98-107); Estimated CRCL calculation 71 ml/min; Estimated Glomerular Filt Rate > 60; Glucose 90 mg/dL (65-110); Potassium 3.9 mmol/L (3.4-5.0); Sodium 136 mmol/L (137-145)
[2022-01-23] MEDS: polyethylene glycoL 3350 17 GM POWD.PACK PO (09:08)
[2022-01-23] MEDS: FAMOTIDINE 20 MG TABLET PO (09:09)
[2022-01-23] MEDS: LORATADINE 10 MG TABLET PO (09:09)
[2022-01-23] MEDS: SENNA/DOCUSATE SODIUM TABLET 2 TAB PO (09:10)
[2022-01-23] MEDS: HEPARIN SODIUM 5,000 UNITS/ML VIAL 5000 UNITS SUB-Q (09:10)
[2022-01-23] MEDS: FLUTICASONE PROPIONATE 0.05% NA SPR 16 GM BTL (*BKC) 1 SPRAY NASAL (09:11)
[2022-01-23] MEDS: BENZOCAINE/MENTHOL (*BKC) 18 EA LOZENGE 1 LOZENGE PO (09:11)
[2022-01-23] MEDS: GENTAMICIN SULFATE INJ 320 MG in DEXTROSE 5% 100 ML 99.31 MG IVPB (09:11)
--- NOTE | 2022-01-23 09:25 | PM.PNORT ---
Progress Note: A&P Assessment and Plan (1) Open wound of left lower extremity with tendon involvement: Qualifiers: Encounter type: subsequent encounter Qualified Code(s): S81.802D - Unspecified open wound, left lower leg, subsequent encounter; S86.902D - Unspecified injury of unspecified muscle(s) and tendon(s) at lower leg level, left leg, subsequent encounter Code(s): S81.802A - Unspecified open wound, left lower leg, initial encounter; S86.902A - Unspecified injury of unspecified muscle(s) and tendon(s) at lower leg level, left leg, initial encounter Status: Acute Assessment and Plan: POD #2: Debridement left leg wound 12 cm, repair Achilles tendon, intermediate repair laceration. Continue PT/OT. TTWB LLE. Continue fracture boot. Dressing changed. Reviewed dressing changes with daughter. Reviewed gentle ROM exercises with patient and her daughter at bedside. Improved pain control. Added Ketorolac. Ice. Elevate on pillows. Continue IV antibiotics. Plan to transition to oral antibiotics at discharge. Dispo: Home today (2) Laceration: Status: Acute Subjective Subjective Date/Time Seen: 01/23/22 09:25 Interval history: POD #2: Debridement left leg wound 12 cm, repair Achilles tendon, intermediate repair laceration. Patient in bed, resting comfortably. Pain with significant improvement. No other concerns. Hopeful for dischagre home. Working well with PT/OT. Maintaining WB status. Review of Systems Review of Systems: All systems reviewed & are unremarkable except as noted in HPI and below Exam Const: General: comfortable and no acute distress Resp: Effort & Inspection: normal respiratory effort Cardio: Rate: regular rate Rhythm: regular rhythm GI: Inspection: non-distended GI Palp: Yes Soft to palpation and No Tenderness to palpation present (GI) Neuro: Cognition (Neuro): normal cognition Extrem: Left lower extremity: lower leg (splint intact. Fracture boot. ), ankle (splint in place ) and foot (Splint in place/fracture boot in place. moves toes, sensation intact. ) Other: Splint removed. Incision well-approximated. Mild ecchymosis. No erythema. No cellulitis. Objective Data Vital Signs Vital Signs: Vital Signs - 24 hr 01/22/22 09:50 01/22/22 12:25 01/22/22 16:20 Temperature 36.9 C 36.3 C L 36.6 C Pulse Rate 65 62 68 Respiratory Rate 12 14 14 Blood Pressure 100/95 H 96/53 L 119/85 Pulse Oximetry 96 96 96 01/22/22 19:50 01/22/22 19:54 01/22/22 20:00 Temperature 36.8 C Pulse Rate 66 66 Respiratory Rate 18 18 Blood Pressure 125/57 L Pulse Oximetry 96 97 97 01/23/22 00:23 01/23/22 05:53 Temperature 36.6 C 36.4 C Pulse Rate 64 61 Respiratory Rate 16 14 Blood Pressure 114/50 L 115/55 L Pulse Oximetry 92 94 Intake/Output Intake/Output: Intake & Output 01/20/22 01/21/22 01/22/22 01/23/22 23:59 23:59 23:59 23:59 Intake Total 50 608 1538 710 Output Total 1000 700 500 Balance 50 -392 838 210 Meds/Results Medications: Active Medications Generic Name Dose Route Start Last Admin Trade Name Freq PRN Reason Stop Dose Admin Acetaminophen 650 mg 01/20/22 15:37 01/22/22 08:37 Acetaminophen 325 Mg Tablet PO 650 mg Q4H PRN Administration Mild Pain (1-3) or Fever Hydrocodone Bitart/Acetaminophen 1 tab 01/21/22 07:48 01/23/22 05:42 Hydrocodone/Acetaminophen (*Crx) 5-325 Mg Tablet PO 1 tab Q4H PRN Administration Pain Rated 4-6 Atorvastatin Calcium 80 mg 01/21/22 21:00 01/22/22 20:50 Atorvastatin 40 Mg Tablet PO 80 mg HS FOREST Administration Benzocaine 1 lozenge 01/21/22 22:56 01/23/22 09:11 Benzocaine/Menthol (*Bkc) 18 Ea Lozenge PO 1 lozenge PRN PRN Administration Sore Throat Bisacodyl 10 mg 01/21/22 18:23 Bisacodyl 10 Mg Suppository RECTAL DAILY PRN Constipation Diazepam 5 mg 01/21/22 18:23 Diazepam (*Crx) 5 Mg Tablet PO Q8H PRN Muscle Spasm [place]
[2022-01-23 10:00] VITALS: BP 102/49; PULSE 64; RESP 16; TEMP 36.7; O2SAT 97
--- NOTE | 2022-01-23 10:56 | PM.DS ---
DS: Admitting Diagnosis Discharge Date 01/23/22 Admitting Diagnosis laceration DS: Discharge Diagnosis Discharge Diagnosis (1) Open wound of left lower extremity with tendon involvement: Qualifiers: Encounter type: subsequent encounter Qualified Code(s): S81.802D - Unspecified open wound, left lower leg, subsequent encounter; S86.902D - Unspecified injury of unspecified muscle(s) and tendon(s) at lower leg level, left leg, subsequent encounter Code(s): S81.802A - Unspecified open wound, left lower leg, initial encounter; S86.902A - Unspecified injury of unspecified muscle(s) and tendon(s) at lower leg level, left leg, initial encounter Status: Acute Assessment and Plan: -ortho consulted -POD #2 s/p debridement left leg wound 12 cm, repair Achilles tendon, intermediate repair laceration -IV abx, will switch to PO on discharge -discharge instructions per ortho (2) Cough: Code(s): R05.9 - Cough, unspecified Status: Acute Assessment and Plan: -cough/congestion x 3 days -covid negative -CXR w/ cardiomegaly, no infiltrates -claritin/flonase for allergic rhinitis DS: Summary Hospital Course Reason for hospitalization: 62 yo wolof speaking female w/ hx of HTN, HLD, GERD, admitted for ankle laceration. Please see HPI for further details. Hospital Course: Please see above for details of hospital course. Status at Discharge Cognitive/behavioral status at discharge: stable Functional status at discharge: independent ambulation Overall status at discharge: patient is progressing back to baseline Time Spent with Patient Time attestation: Total time spent providing and/or coordinating discharge services: 31 Time spent: Greater than 30 minutes Exam Narrative: General: No acute distress, non toxic appearing Eyes: PERRL, no scleral icterus HEENT: NCAT, external ears normal, MMM Respiratory: No respiratory distress, Lungs CTA bilaterally, no wheezing Cardiovascular: RRR, no murmur Abdominal: Soft, nontender, non distended, no rebound or guarding Musculoskeletal: Moves all 4 extremities, no edema Neurological: A/Ox3, speech clear, no facial asymmetry Skin: Warm, dry. Dressing and boot in place LLE. Psychiatric: Normal affect, normal mood DS: Data Data Completed and Pending Labs on day of discharge: Labs from last 24 hours 01/23/22 01/23/22 05:17 05:17 WBC 4.7 RBC 3.47 L Hgb 10.3 L Hct 31.4 L MCV 90.5 MCH 29.7 MCHC 32.8 RDW 13.4 Plt Count 151 MPV 11.3 H Immature Gran % (Auto) 0.2 Neut % (Auto) 62.2 Lymph % (Auto) 21.9 [place] % (Auto) 10.5 H Eos % (Auto) 4.6 H Baso % (Auto) 0.6 Lymph # (Auto) 1.04 [place] # (Auto) 0.5 Eos # (Auto) 0.2 Baso # (Auto) 0.0 Abs Immat Gran (auto) 0.01 Absolute Neuts (auto) 2.9 Absolute Nucleated RBC 0.0 Nucleated RBC % 0.0 Sodium 136 L Potassium 3.9 Chloride 105 Carbon Dioxide 24 Anion Gap 7 L BUN 16 Creatinine 0.70 Estim Creat Clear Calc 71 Estimated GFR > 60 Glucose 90 Calcium 8.0 L Discharge Plan Discharge Attending physician on discharge: Ozzy Cool Consulting providers: Gallo Del Rosario Discharging Clinician: Dolores Voss Anticipated Discharge Date/Time: 01/23/22 10:58 Patient Disposition: Home, Self-Care Activity: no shower, no driving and follow weight bearing status Diet: as tolerated Wound Care Instructions: follow printed instructions Discharge Instructions: Orthopedic Recommendations Dr. Gallo Del Rosario [phone] Antibiotics have been called to your pharmacy. Take according to directions every 12 hours for 7 days. Pain medicine has been called to your pharmacy. Take as needed and according to the directions. You may remove your boot for dressing changes and gentle range of motion exercises as discussed with your family at the bedside. You may be weight bearing as tolerat
== END 2022-01-23 11:40 | disposition home or self-care (01) | DRG 317 ==
LOC: ANHED 15:37 → ANH2MED 16:42
PROVIDERS: Nurse Practitioner Adult Health; Orthopaedic Surgery; Physician Assistant; Admitting Provider Internal Medicine; Emergency Provider Emergency Medicine; PCP Registered Nurse; Visit Provider Chiropractor
PROC: 0LQP0ZZ Repair Left Lower Leg Tendon, Open Approach (ICD-10-PCS; principal; 2022-01-21 15:30)
DX: S86.022A Laceration of left Achilles tendon, initial encounter (principal); Z20.822 Contact with and (suspected) exposure to COVID-19; E78.5 Hyperlipidemia, unspecified; I11.9 Hypertensive heart disease without heart failure; K21.9 Gastro-esophageal reflux disease without esophagitis; J30.9 Allergic rhinitis, unspecified; W22.8XXA Striking against or struck by other objects, initial encounter; W28.XXXA Contact with powered lawn mower, initial encounter; Z28.310 Unvaccinated for COVID-19
CPT/HCPCS: 36415; 71045; 73590; 80048; 80053; 80170; 83735; 85025; 87426; 90471; 90715; 96365; 96375; 97161; 97165; 97530; 99285; A9270; C9803; G0378; G0379; J0690; J1580; J1644; J1885; J2250; J2270; J2405; J2704; J3010; J7120

== ENCOUNTER 2022-03-27 01:14 | Day surgery (SDC) | payer OTHER, SELFPAY ==
--- NOTE | 2022-03-26 10:44 | P.PNAN_ITS ---
Anes - Initial Pre Proc Eval Procedure: Operation Date: 03/27/22 11:00 Proposed Procedures p Debridement Left Leg with Graft Application - Gallo Del Rosario MD Date/Time: 03/26/22 10:44 Surgeon: Gallo Del Rosario MD Pre Op Diagnosis: left leg wound Patient Data Age: 62 Gender: F Height: Weight: Allergies Allergy/AdvReac Type Severity Reaction Status Date / Time No Known Allergies Allergy Verified 03/27/22 09:32 Home Medications Medication Instructions Recorded Confirmed Type atorvastatin 80 mg tablet (Lipitor) 80 mg PO DAILY 01/20/22 03/27/22 History hydrocodone 5 mg-acetaminophen 325 1 tablet PO Q4H PRN pain #30 tabs 03/03/22 03/27/22 Rx mg tablet Patient hx anesthesia problems: none Family hx anesthesia problems: none Results Review: All pre-operative results and documents have been reviewed as part of the pre- operative evaluation. [facility] Past Medical History Medical History Encounter for postoperative care GERD (gastroesophageal reflux disease) HLD (hyperlipidemia) HTN (hypertension) Pneumonia Wears glasses Surgical History Surgical History H/O hernia repair Social History Social History Smoking status: Never smoker Alcohol intake: never Substance use: never Substance use type: does not use Living arrangements: with family Gender identity (if verbalized by the patient): Female Spiritual care concerns: No Anes - Eval Final PreProcedure Day of Procedure 03/26/22 10:44 Patient weight: obese Heart: regular rate and rhythm Lungs: clear to auscultation Airway: Mallampati scale class II Neurological: alert and oriented Last oral intake: >/= 8 hours ASA classification: II Emergent: no Anesthetic plan: proceed Anesthesia type and monitoring: general LMA and standard monitoring Results Review: All pre-operative results and documents have been reviewed as part of the pre- operative evaluation. Informed Consent: The patient's anesthetic plan and its attendant risks and benefits were discussed with the patient/family/POA. Questions were solicited and answers provided to the satisfaction of the patient/family/POA.
[2022-03-27] VITALS (9 sets, daily range): BP systolic 97–126; BP diastolic 54–68; PULSE 49–62; RESP 10–14; TEMP 36.3–37.2; O2SAT 98–100; BMI 29.2
--- NOTE | 2022-03-27 09:55 | ECG_ITS ---
Measurements Intervals [place] Rate: 50 P: 9 ND: 169 QRS: 33 QRSD: 89 T: 11 QT: 442 QTc: 404 Interpretive Statements SINUS BRADYCARDIA BASELINE WANDER- I, II, III BORDERLINE ECG Electronically Signed On 03-27-2022 16:43:24 CDT by Joey Potts D.O.
[2022-03-27] MEDS: LACTATED RINGERS 1,000 ML 30 ML IV CONT (10:15)
--- NOTE | 2022-03-27 10:37 | WPDHPUPDATE1 ---
History and Physical Update Update Date/Time: 03/27/22 10:37 History and Physical has been reviewed, including an updated exam of the patient. There are NO changes in the patient's condition. Risks, benefits, and alternatives have been discussed and questions answered. Patient agrees to proceed with procedure.
[2022-03-27] MEDS: KETOROLAC 15 MG/ML VIAL (*BKC) IV PUSH (10:45)
[2022-03-27] MEDS: ACETAMINOPHEN 500 MG TABLET 1000 MG PO (10:45)
[2022-03-27] MEDS: ceFAZolin 2 GM/D5W 50 ML 2 GM/50 ML BAG IVPB (10:46)
--- NOTE | 2022-03-27 11:40 | W.PM.PROC2 ---
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 Wound is now nonhealing. She presents for operative treatment. Findings Achilles tendon repair intact. No deep evidence of infection. Description of Procedure Patient identified in the preoperative holding. Informed consent given. Operative extremity marked. Patient received intravenous antibiotics. Patient brought to the operating room where underwent general anesthetic by anesthesia team. Positioned supine on operating room table. Time-out performed confirming the patient, site of the surgery and the plan. Left leg prepped and draped in usual sterile surgical fashion using a Betadine prep solution. Fifteen blade knife used to sharply excise skin subcutaneous tissue and muscle from the left leg wound. This measured 3 cm x 1 cm with 2 cm of depth. The medial edge of the Achilles tendon was able to be visualized and was noted to be intact. The overlying tissue was debrided sharply with a knife. Wound thoroughly irrigated with saline solution. Amnio excel graft then applied to the wound. This was covered with 3 x 3 cm primatrix graft. The wound was then approximated at the medial lateral aspect with 0 Prolene interrupted suture. The open area was covered with the bilayer skin replacement graft and secured into place with 3 Monocryl interrupted suture. Sterile dressing applied. The patient was then woken from anesthesia, extubated and taken to the recovery room in stable condition. All sponge, needle, instrument counts were correct at the end of the case. Implants Amnio excel. Prime matrix. Bilayer skin replacement. Estimated Blood Loss 10 Tourniquet Time 0 Drains No Packing No Pathology None sent Complications None Condition Stable Disposition PACU
[2022-03-27] MEDS: fentaNYL CITRATE INJ (*CRX) 100 MCG/2 ML VIAL 25 MCG IV PUSH ×4 (12:09→12:32)
[2022-03-27] MEDS: oxyCODONE HCL (*CRX) 5 MG TAB IR PO (13:05)
== END 2022-03-27 13:48 | disposition home or self-care (01) ==
PROVIDERS: PCP Registered Nurse; Visit Provider Orthopaedic Surgery
PROC: (CPT 15271; principal; 2022-03-27 11:00)
DX: S81.812A Laceration without foreign body, left lower leg, initial encounter (principal); W28.XXXA Contact with powered lawn mower, initial encounter; I10 Essential (primary) hypertension; E78.5 Hyperlipidemia, unspecified; K21.9 Gastro-esophageal reflux disease without esophagitis; Z79.891 Long term (current) use of opiate analgesic; E66.9 Obesity, unspecified; Z68.29 Body mass index [BMI] 29.0-29.9, adult
CPT/HCPCS: 15271; 11043; 93005; A9270; C9363; J0690; J1100; J1885; J2250; J2405; J2704; J3010; J7120; Q4137

== ENCOUNTER 2022-05-26 07:06 | Outpatient (RCR) | payer OTHER, SELFPAY ==
--- NOTE | 2022-04-07 09:21 | PM.PNORT ---
Progress Note: A&P Assessment and Plan (1) Encounter for postoperative care: Code(s): Z48.89 - Encounter for other specified surgical aftercare Status: Acute Assessment and Plan: One week, 4 days status post left ankle debridement and graft application. Graft incorporating well. Silicone layer intact. Patient to continue weight-bearing with her fracture boot. Pain medication renewed. Change dressing daily with Adaptic covering the graft silicone layer and covered dry. Patient follow-up in the [place] [facility] in 1 week for silicone graft layer removal. The patient was prescribed narcotics today with a plan for only 3-4 weeks use during this acute stage of pain. The risks and benefits regarding the use of narcotics was reviewed in detail. Discussed importance of using narcotics sparingly and only when unrelieved by nonnarcotic pain medications to prevent narcotic overuse, abuse and addiction. Discussed importance of weaning from use as soon as possible. The patient verbalized understanding of risks and agrees with plan of care. (2) Open wound of left lower extremity with tendon involvement: Qualifiers: Encounter type: subsequent encounter Qualified Code(s): S81.802D - Unspecified open wound, left lower leg, subsequent encounter; S86.902D - Unspecified injury of unspecified muscle(s) and tendon(s) at lower leg level, left leg, subsequent encounter Code(s): S81.802A - Unspecified open wound, left lower leg, initial encounter; S86.902A - Unspecified injury of unspecified muscle(s) and tendon(s) at lower leg level, left leg, initial encounter Status: Acute (3) Laceration: Status: Acute Subjective Subjective Date/Time Seen: 04/07/22 09:21 Interval history: 62-year-old female presents to the [place] wound clinic today 1 week, 4 days status post left ankle debridement and graft application after a repair of the Achilles tendon and medial ankle laceration in January of 2022. She is 10 weeks, 6 days status post her original date of surgery. She did undergo a graft application for chronic laceration. She is performing daily dressing changes at this time. She does endorse pain in the left foot and ankle. No signs of infection. She has ran out of her pain medication. Review of Systems Review of Systems: All systems reviewed & are unremarkable except as noted in HPI and below Exam Const: General: comfortable Resp: Effort & Inspection: normal respiratory effort Skin: Wounds: wounds noted (Medial ankle, left) Neuro: Sensory Exam: normal sensation Extrem: Other: Wound on the medial aspect of the left Achilles is covered with a graft silicone layer. Graft incorporating well. No surrounding signs of infection. Left foot and ankle with some swelling. Still with limited range of motion of left ankle. Psych: Affect: normal affect
[2022-04-07 12:08] VITALS: BMI 31.1
--- NOTE | 2022-04-14 09:12 | P.PNOP_ITS ---
Progress Note: A&P Assessment and Plan (1) Encounter for postoperative care: Code(s): Z48.89 - Encounter for other specified surgical aftercare Status: Acute Assessment and Plan: 2 weeks, 4 days status post left ankle debridement and graft application. Silicone layer removed. Underlying wound with tendon exposure measures 2.0x4.5x1.2cm. Surrounding tissue viable. Recommended transitioning to mira, silver gel to keep wound bed moist and covering with adaptic. Patient may benefit from a traditional wound VAC to allow for closure of wound. Will begin insurance authorization. Patient to follow up in 1 week for reevaluation and possible wound VAC placement. (2) Open wound of left lower extremity with tendon involvement: Qualifiers: Encounter type: subsequent encounter Qualified Code(s): S81.802D - Unspecified open wound, left lower leg, subsequent encounter; S86.902D - Unsp ecified injury of unspecified muscle(s) and tendon(s) at lower leg level, left leg, subsequent encounter Code(s): S81.802A - Unspecified open wound, left lower leg, initial encounter; S86.902A - Unspecified injury of unspecified muscle(s) and tendon(s) at lower leg level, left leg, initial encounter Status: Acute (3) Laceration: Status: Acute Subjective Subjective Date/Time Seen: 04/14/22 09:12 Interval history: 62-year-old female presents to the [place] wound clinic today 2 weeks, 4 days status post left ankle debridement and graft application after a repair of the Achilles tendon and medial ankle laceration in January of 2022. She is 12 weeks status post her original date of surgery. She is performing daily dressing changes at this time. She does endorse pain in the left foot and ankle. No signs of infection. She has ran out of her pain medication. Review of Systems 2 Review of Systems: All systems reviewed & are unremarkable except as noted in HPI and below Exam Const: General: comfortable Resp: Effort & Inspection: normal respiratory effort Skin: Wounds: wounds noted (Medial ankle, left) Neuro: Sensory Exam: normal sensation Extrem: Other: Silicone layer of the graft removed today. Underlying wound measures 2.0x4.5x1.2cm with tendon exposure. Surrounding tissue viable. No eschar. No signs of infection. Left foot and ankle with some swelling. Still with limited range of motion of left ankle. Psych: Affect: normal affect
--- NOTE | 2022-04-21 12:25 | PM.PNORT ---
Progress Note: A&P Assessment and Plan (1) Encounter for postoperative care: Code(s): Z48.89 - Encounter for other specified surgical aftercare Status: Acute Assessment and Plan: 3 weeks, 4 days status post left ankle debridement and graft application. Silicone layer removed last week. Underlying wound with Collagen graft exposure, excised today. Surrounding tissue viable. Recommend continue mira, silver gel to keep wound bed moist and covering with adaptic. no wound VAC indicated today as no drainage present in the wound. Patient to follow up in 1 week for reevaluation. Continue with fracture boot for protected weight-bearing. Encourage activity and to be up and ambulatory as much as possible. May wash and shower with daily dressing change. (2) Open wound of left lower extremity with tendon involvement: Qualifiers: Encounter type: subsequent encounter Qualified Code(s): S81.802D - Unspecified open wound, left lower leg, subsequent encounter; S86.902D - Unspecified injury of unspecified muscle(s) and tendon(s) at lower leg level, left leg, subsequent encounter Code(s): S81.802A - Unspecified open wound, left lower leg, initial encounter; S86.902A - Unspecified injury of unspecified muscle(s) and tendon(s) at lower leg level, left leg, initial encounter Status: Acute (3) Laceration: Status: Acute Subjective Subjective Date/Time Seen: 04/21/22 12:25 Post Op day: 25 Principal diagnosis: LT leg laceration Exam Const: General: comfortable Resp: Effort & Inspection: normal respiratory effort Skin: Wounds: wounds noted (Medial ankle, left) Neuro: Sensory Exam: normal sensation Extrem: Other: Left leg wound measures 1.5x4.2x0.9cm. portion of the collagen graft present in the midportion of the wound. This was sharply debrided today. Minimal slough surrounding. Surrounding tissue viable. No eschar. No signs of infection. Left foot and ankle with some swelling. Still with limited range of motion of left ankle. Psych: Affect: normal affect Objective Data Meds/Results Medications: Active Medications Generic Name Dose Route Start Last Admin Trade Name Freq PRN Reason Stop Dose Admin Silver Nitrate 1 applic 04/14/22 09:15 Silvergel (Elta) 45 Ml TOPICAL 07/15/22 23:55 PRN PRN Wound Care
--- NOTE | 2022-04-28 09:29 | P.PNOP_ITS ---
Progress Note: A&P Assessment and Plan (1) Encounter for postoperative care: Code(s): Z48.89 - Encounter for other specified surgical aftercare Status: Acute Assessment and Plan: 4 weeks, 4 days status post left ankle debridement and graft application. Wound bed with continued improvement. Recommended continuing mira, silver gel to keep wound bed moist and covering with gauze/kerlex. Follow up in 2 weeks. Continue with fracture boot for protected weight-bearing. Encourage activity and to be up and ambulatory as much as possible. May wash and shower with daily dressing change. (2) Open wound of left lower extremity with tendon involvement: Qualifiers: Encounter type: subsequent encounter Qualified Code(s): S81.802D - Unspecified open wound, left lower leg, subsequent encounter; S86.902D - Unspecified injury of unspecified muscle(s) and tendon(s) at lower leg level, left leg, subsequent encounter Code(s): S81.802A - Unspecified open wound, left lower leg, initial encounter; S86.902A - Unspecified injury of unspecified muscle(s) and tendon(s) at lower leg level, left leg, initial encounter Status: Acute (3) Laceration: Status: Acute Subjective Subjective Date/Time Seen: 04/28/22 09:29 Principal diagnosis: LT leg laceration Interval history: 62-year-old female presents to the [place] wound clinic today 4 weeks, 4 days status post left ankle debridement and graft application after a repair of the Achilles tendon and medial ankle laceration in January of 2022. She is 3 months status post her original date of surgery. She is performing daily dressing changes at this time. She does endorse pain in the left foot and ankle. No signs of infection. Exam Const: General: comfortable Resp: Effort & Inspection: normal respiratory effort Skin: Wounds: wounds noted (Medial ankle, left) Neuro: Sensory Exam: normal sensation Extrem: Other: Left leg wound measures 1.2x3.8x0.8 cm. 100% red/pink wound bed, new granulation noted. Surrounding tissue viable. No eschar. No signs of infection. Left foot and ankle with some swelling. Still with limited range of motion of left ankle. Psych: Affect: normal affect Objective Data Meds/Results Medications: Active Medications Generic Name Dose Route Start Last Admin Trade Name Freq PRN Reason Stop Dose Admin Silver Nitrate 1 applic 04/14/22 09:15 Silvergel (Elta) 45 Ml TOPICAL 07/15/22 23:55 PRN PRN Wound Care
--- NOTE | 2022-05-12 09:47 | PCWOUND ---
CWON NOTE patient did not show up for her appointment. No call was made to cancel or reschedule. Call made to patient, left voicemail for patient.
--- NOTE | 2022-05-26 09:44 | PM.PNORT ---
Progress Note: A&P Assessment and Plan (1) Encounter for postoperative care: Code(s): Z48.89 - Encounter for other specified surgical aftercare Status: Acute Assessment and Plan: Wound closed. No signs of infection. Patient to start PT at this time. WBAT. Wean from Fracture Boot as tolerated. PT x6 weeks. Continue work restrictions. Follow up with Dr. Del Rosario at the end of PT to evaluate work status. (2) Open wound of left lower extremity with tendon involvement: Qualifiers: Encounter type: subsequent encounter Qualified Code(s): S81.802D - Unspecified open wound, left lower leg, subsequent encounter; S86.902D - Unspecified injury of unspecified muscle(s) and tendon(s) at lower leg level, left leg, subsequent encounter Code(s): S81.802A - Unspecified open wound, left lower leg, initial encounter; S86.902A - Unspecified injury of unspecified muscle(s) and tendon(s) at lower leg level, left leg, initial encounter Status: Acute (3) Laceration: Status: Acute Subjective Subjective Date/Time Seen: 05/26/22 09:44 Principal diagnosis: LT leg laceration Interval history: 62-year-old female presents to the [place] wound clinic today 2 months status post left ankle debridement and graft application after a repair of the Achilles tendon and medial ankle laceration in January of 2022. She is 4 months status post her original date of surgery. She is performing daily dressing changes at this time. She does endorse pain in the left foot and ankle. No signs of infection. Review of Systems Review of Systems: All systems reviewed & are unremarkable except as noted in HPI and below Exam Const: General: comfortable Resp: Effort & Inspection: normal respiratory effort Skin: Wounds: wounds noted (Medial ankle, left) Neuro: Sensory Exam: normal sensation Extrem: Other: Left leg wound closed. No signs of infection. Left foot and ankle with some swelling. Still with limited range of motion of left ankle. Psych: Affect: normal affect Objective Data Meds/Results Medications: Active Medications Generic Name Dose Route Start Last Admin Trade Name Freq PRN Reason Stop Dose Admin Silver Nitrate 1 applic 04/14/22 09:15 Silvergel (Elta) 45 Ml TOPICAL 07/15/22 23:55 PRN PRN Wound Care
== END 2022-05-27 09:26 | disposition home or self-care (01) ==
LOC: ANHWOC 07:06
PROVIDERS: PCP Registered Nurse; Visit Provider Orthopaedic Surgery
DX: Z48.89 Encounter for other specified surgical aftercare (principal); S86.9 Injury of unspecified muscle and tendon at lower leg level; S81.802D Unspecified open wound, left lower leg, subsequent encounter
CPT/HCPCS: 99212; 99213; G0463

== ENCOUNTER 2022-07-28 15:30 | Outpatient (RCR) | payer OTHER, SELFPAY ==
--- NOTE | 2022-06-16 16:26 | PTOPEVAL1 ---
Assessment and note entered by Lidia Staley, PT Evaluation Information Assessment Status Evaluation Diagnosis s/p graft L achilles 04/2022 after lacertaion 2021 and repair Reported Pain Level Pain Score 0 while NWB, increases to moderate w/ walking Assessment PT Clinical Summary Pt present s/p graft placement 04/2022 to L achilles after initial injury in 01/2022. Pt presents in walking boot and bilat axillary crutches using a step-to pattern. Evaluation shows lack of neutral dorsiflexion both passive and actively, soft tissue and muscle tension at end- range DF, decreased calcaneal glide with plantarflexion, mildly decreased strength DF, Inv, and Ev. Today pt performed and was provided with home exercise program for AROM left ankle, educated on improved walking pattern with step- thru/reciprocal pattern while using curthes, and her crutches were adjusted to the appropriate height. Pt will benefit from physical therapy in order to improve AROM and PROM of left ankle in all planes, improve weight bearing LLE, improve gait, and thus improve overall function. Plan of Care Interventions Electrical Stimulation,Hot Pack/Cold Pack,Manual Therapy,Therapeutic Activities,Therapeutic Exercise,Self-Care/Home Management Other Interventions Resting night splint to promote DF PT Services Indicated Yes Treatment Frequency and 2x weekly x 6 weeks Duration These treatments will address the objective and functional deficits as defined above. The patient will be advanced safely and appropriately in order for the patient to progress towards his/her prior level of function. Additional exercises will be introduced and as well as a comprehensive home exercise program upon discharge, if needed, ?to ensure carryover of functional gains achieved in the clinic. This treatment plan has been reviewed and agreement upon by the patient.
--- NOTE | 2022-07-28 16:22 | PTOPDC ---
Assessment and note entered by Morena Sidhu, PT Evaluation Information Assessment Status Discharge Diagnosis s/p graft L achilles 04/2022 after laceration January 2022 and repair Subjective Information Maneula reports: better with less pain and walking better; in the house, does not use the crutch, when go out take it;have been doing the exercises; is doing everything at home, but try to not have her go up/down stairs; PAIN: L ankle range of 0-5/10; increase with walking and full wt on L leg; at distal gastroc pinches; is not taking any pain meds for her ankle but does take some for her back; pt reports she is ready to be done with therapy and do the exercises on her own at home; daughter present during session and interpreted for pt; Reported Pain Level Pain Score Self Report 0-5/10 in ankle Assessment PT Clinical Summary Lorrie has had 12 PT sessions. Compared to the initial evaluation; pain rating is the same; increased ankle strength and active ROM of all motions; she is now walking with one crutch or without device; she is independent with her home exercises. She continues to have decreased ankle DF range of 0', which affects her gait pattern and ability on stairs; continues to have pain increase with full weight bearing on her L LE. The goals were partially achieved. Lorrie stated she feels good about her ankle and wants to stop therapy, but continue to walk and do her exercises at home. Discharge PT services. Plan of Care PT Services Indicated No
== END 2022-07-29 09:28 | disposition home or self-care (01) ==
LOC: ANHPT 15:30
PROVIDERS: PCP Registered Nurse; Visit Provider Nurse Practitioner Family
DX: S91.012D Laceration without foreign body, left ankle, subsequent encounter (principal); S96.92 Laceration of unspecified muscle and tendon at ankle and foot level; Z98.890 Other specified postprocedural states
CPT/HCPCS: 97110; 97116; 97140; 97162; 97530